=== PATIENT | male | born 1960 | race Caucasian/White ===

== ENCOUNTER 2020-01-21 01:48 | Outpatient (CLI) | payer BC, SELFPAY ==
[2020-01-21 19:20] LABS: SARS-CoV-2 RNA PCR Negative
== END 2020-01-21 01:49 | disposition home or self-care (01) ==
LOC: ANHCOVIDDT 01:48
PROVIDERS: PCP Internal Medicine; Visit Provider Internal Medicine Gastroenterology
DX: Z01.812 Encounter for preprocedural laboratory examination (principal); Z20.828 Contact with and (suspected) exposure to other viral communicable diseases
CPT/HCPCS: 87635; C9803; U0003

== ENCOUNTER 2020-01-23 01:40 | Day surgery (SDC) | payer BC, SELFPAY ==
[2020-01-16 09:49] VITALS: BMI 34.7
--- NOTE | 2020-01-22 15:19 | WPDANESEPP ---
Anes - Eval Pre Procedure Procedure: Operation Date: 01/23/20 08:00 Proposed Procedures p Screening Colonoscopy - Rick Mendosa MD Date/Time: 01/22/20 15:19 Pre Op Diagnosis: Neoplasm Screening,Hx Of Colon Polyps Patient Data Age: 60 Gender: M Height: 1.83 m Weight: 116 kg Allergies Allergy/AdvReac Type Severity Reaction Status Date / Time No Known Allergies Allergy Unverified 01/16/20 09:45 Home Medications Medication Instructions Recorded Confirmed Type amlodipine 10 mg tablet 10 mg PO DAILY 03/21/19 01/16/20 History atorvastatin 10 mg tablet 10 mg PO DAILY 03/21/19 01/16/20 History fenofibrate 54 mg tablet 54 mg PO DAILY 03/21/19 01/16/20 History glimepiride 2 mg tablet 2 mg PO DAILY tablet 03/21/19 01/16/20 History metformin 500 mg tablet 500 mg PO BID 03/21/19 01/16/20 History metoclopramide HCl 10 mg tablet 10 mg PO DAILY tablet 03/21/19 01/16/20 History pantoprazole 40 mg tablet,delayed 40 mg PO QAM 03/21/19 01/16/20 History release ECG: NSR Patient hx anesthesia problems: none Family hx anesthesia problems: none PMFSH Past Medical History Medical History (Updated 01/22/20 @ 15:23 by Madonna Mary CRNA) Diabetes 1.5, managed as type 2 Heart palpitations HTN (hypertension) Hyperlipidemia Obesity (BMI 30-39.9) SY (obstructive sleep apnea) Surgical History Surgical History (Updated 03/21/19 @ 15:51 by Brionna Ball RESTRICTIVE PREPARATION OPERATOR) History of hernia repair Family History Family History (Updated 12/24/18 @ 14:53 by DOCTOR UNKNOWN) Mother Family history of malignant neoplasm of breast in first degree relative Father Diabetes mellitus Other Hypertension Social History Social History Smoking status: Former smoker Tobacco type: cigarettes Smoking end date: 05/14/99 Alcohol intake: current Drinks per week: 20 Substance use: never Substance use type: does not use Spiritual care concerns: No Exam Day of Procedure 01/22/20 15:19
[2020-01-23 07:04] VITALS: BP 164/89; PULSE 90; RESP 20; TEMP 36.3; O2SAT 97; BMI 34.5
--- NOTE | 2020-01-23 07:30 | WPDANESEPPF ---
Anes - Initial Pre Proc Eval Procedure: Operation Date: 01/23/20 08:00 Proposed Procedures p Screening Colonoscopy - Rick Mendosa MD Date/Time: 01/23/20 07:30 Surgeon: Rick Mendosa MD Pre Op Diagnosis: Neoplasm Screening,Hx Of Colon Polyps Patient Data Age: 60 Gender: M Height: 1.83 m Weight: 115.6 kg Last Vital Signs Temp 36.3 C L 01/23/20 07:04 Pulse 90 01/23/20 07:04 Resp 20 01/23/20 07:04 BP 164/89 H 01/23/20 07:04 Pulse Ox 97 01/23/20 07:04 Allergies Allergy/AdvReac Type Severity Reaction Status Date / Time No Known Allergies Allergy Verified 01/23/20 07:02 Home Medications Medication Instructions Recorded Confirmed Type amlodipine 10 mg tablet 10 mg PO DAILY 03/21/19 01/16/20 History atorvastatin 10 mg tablet 10 mg PO DAILY 03/21/19 01/16/20 History fenofibrate 54 mg tablet 54 mg PO DAILY 03/21/19 01/16/20 History glimepiride 2 mg tablet 2 mg PO DAILY tablet 03/21/19 01/16/20 History metformin 500 mg tablet 500 mg PO BID 03/21/19 01/16/20 History metoclopramide HCl 10 mg tablet 10 mg PO DAILY tablet 03/21/19 01/16/20 History pantoprazole 40 mg tablet,delayed 40 mg PO QAM 03/21/19 01/16/20 History release Patient hx anesthesia problems: none Family hx anesthesia problems: none PMFSH Past Medical History Medical History (Updated 01/22/20 @ 15:23 by Madonna Mary CRNA) Diabetes 1.5, managed as type 2 Heart palpitations HTN (hypertension) Hyperlipidemia Obesity (BMI 30-39.9) SY (obstructive sleep apnea) Surgical History Surgical History (Updated 03/21/19 @ 15:51 by Brionna Ball CMA) History of hernia repair Family History Family History (Updated 12/24/18 @ 14:53 by DOCTOR UNKNOWN) Mother Family history of malignant neoplasm of breast in first degree relative Father Diabetes mellitus Other Hypertension Social History Social History Smoking status: Former smoker Tobacco type: cigarettes Smoking end date: 05/14/99 Alcohol intake: current Drinks per week: 20 Alcohol use details: BEERS Substance use: never Substance use type: does not use Living arrangements: alone Spiritual care concerns: No Anes - Eval Final PreProcedure Day of Procedure 01/23/20 07:30 Patient weight: obese Heart: regular rate and rhythm Lungs: clear to auscultation and normal air movement Airway: Mallampati scale class II Neurological: alert and oriented Last oral intake: >/= 8 hours ASA classification: III Emergent: no Anesthetic plan: proceed Anesthesia type and monitoring: general GIVS Informed Consent: The patient's anesthetic plan and its attendant risks and benefits were discussed with the patient/family/POA. Questions were solicited and answers provided to the satisfaction of the patient/family/POA.
[2020-01-23 07:32] LABS: Glucose Point of Care 172 (65-105)
[2020-01-23] MEDS: LACTATED RINGERS 1,000 ML 150 ML IV CONT (07:45)
--- NOTE | 2020-01-23 07:55 | WPDGICN ---
Assessment and Plan Assessment and plan (1) History of colon polyps: Code(s): Z86.010 - Personal history of colonic polyps Status: Acute Assessment and Plan: Adenomatous colon polyps removed from the colon 2014. Plan is for follow-up colonoscopy now on a 5 year intervals in the future. (2) Diastasis recti: Code(s): M62.08 - Separation of muscle (nontraumatic), other site Status: Acute Assessment and Plan: Not felt to be clinically significant. Would suggest observation at this time. GI Consult Note Consult date/time: 01/23/20 07:55 HPI: Nabil Holland is a 60 year old male Seen in evaluation at the request of Dr. Mike Osborne. Patient has a history of adenomatous colon polyps removed from the colon in 2014. Patient's current weight appetite bowel movements are normal. He denies abdominal pain. Denies any blood in his stools. He has noticed occasional protrusion in the midportion of his abdomen. Review of Systems Review of Systems: All systems reviewed & are unremarkable except as noted in HPI and below PMFSH Past Medical History Medical History Diabetes 1.5, managed as type 2 Heart palpitations HTN (hypertension) Hyperlipidemia Obesity (BMI 30-39.9) SY (obstructive sleep apnea) Surgical History Surgical History History of hernia repair Family History Family History Mother Family history of malignant neoplasm of breast in first degree relative Father Diabetes mellitus Other Hypertension Social History Social History Smoking status: Former smoker Tobacco type: cigarettes Smoking end date: 05/14/99 Alcohol intake: current Drinks per week: 20 Alcohol use details: BEERS Substance use: never Substance use type: does not use Living arrangements: alone Spiritual care concerns: No Meds Home Medications and Allergies Home Medications Medication Instructions Recorded Confirmed Type amlodipine 10 mg tablet 10 mg PO DAILY 03/21/19 01/16/20 History atorvastatin 10 mg tablet 10 mg PO DAILY 03/21/19 01/16/20 History fenofibrate 54 mg tablet 54 mg PO DAILY 03/21/19 01/16/20 History glimepiride 2 mg tablet 2 mg PO DAILY tablet 03/21/19 01/16/20 History metformin 500 mg tablet 500 mg PO BID 03/21/19 01/16/20 History metoclopramide HCl 10 mg tablet 10 mg PO DAILY tablet 03/21/19 01/16/20 History pantoprazole 40 mg tablet,delayed 40 mg PO QAM 03/21/19 01/16/20 History release Allergies Allergy/AdvReac Type Severity Reaction Status Date / Time No Known Allergies Allergy Verified 01/23/20 07:02 Vital Signs Vital Signs - 24 hr 01/23/20 07:04 Temperature 97.3 F L Pulse Rate 90 Respiratory Rate 20 Blood Pressure 164/89 H Pulse Oximetry 97 Exam Narrative: Exam Narrative: Physical exam reveals patient to be alert. Vital signs stable. HEENT exam unremarkable. Patient is anicteric. Lungs are clear to auscultation and percussion. Heart is without murmur or extra sounds. Abdominal exam bowel sounds are present soft nontender with no organomegaly. There is apparent diastasis recti in the mid abdomen. No tenderness or masses identified. Digital external rectal exam is normal.
[2020-01-23 08:18] VITALS: BP 127/82; PULSE 83; RESP 20; O2SAT 94
[2020-01-23 08:28] VITALS: BP 123/81; PULSE 82; RESP 18; O2SAT 95
[2020-01-23 08:38] VITALS: BP 120/83; PULSE 75; RESP 19; O2SAT 95
== END 2020-01-23 08:49 | disposition home or self-care (01) ==
PROVIDERS: PCP Internal Medicine; Visit Provider Internal Medicine Gastroenterology
PROC: 0DJD8ZZ Inspection of Lower Intestinal Tract, Via Natural or Artificial Opening Endoscopic (ICD-10-PCS; CPT 45378; principal; 2020-01-23 08:00)
DX: Z12.11 Encounter for screening for malignant neoplasm of colon (principal); D12.2 Benign neoplasm of ascending colon; D12.3 Benign neoplasm of transverse colon; K57.30 Diverticulosis of large intestine without perforation or abscess without bleeding; K64.8 Other hemorrhoids; E13.9 Other specified diabetes mellitus without complications; Z79.84 Long term (current) use of oral hypoglycemic drugs; I10 Essential (primary) hypertension; E66.9 Obesity, unspecified; Z68.34 Body mass index [BMI] 34.0-34.9, adult; G47.33 Obstructive sleep apnea (adult) (pediatric); Z87.891 Personal history of nicotine dependence; Z79.899 Other long term (current) drug therapy
CPT/HCPCS: 45385; 88305; J2704; J7120